=== PATIENT | female | born 1945 | race Caucasian/White ===

== ENCOUNTER → 2019-09-27 | Outpatient (CLI) | payer OTHER ==
[~2019-09-27] MED LIST: ADULT LOW DOSE81 MG PO; ADVAIR 250-501 EACH PO; ADVAIR HFA 230M12 GM INH; ALEVE220 MG PO; ASPIR 8181 MG PO; ASPIRIN325 PO; CITRUCEL CAPLET1 TA1 PO; DOXYCYCLINE 10100 MG PO; FERATE240 M1 PO; FERROUS GLUCON324 M2 PO; FISH OIL 1,001000 M2 PO; FOLIC ACID1 MG PO; HYDROCHLOROTH12.5 M1 PO; IBUPROFEN 200200 M1 PO; IBUPROFEN 600600 M1 PO; LEVOTHYROXIN0.125 M1 PO; LISINOPRIL10 MG PO; MUCINEX TA600 MG/TA2 PO; OMEGA-31000 M1 PO; OMEPRAZOLE20 MG PO; PAROXETINE HCL10 MG PO; PAXIL10 MG PO; PRILOSEC20 MG PO; PRINIVIL10 MG PO; PROAIR HFA8.5 GM INH; ROCEPHIN 1 GM VL1 G1 IV; SINGULAIR 10 MG10 M1 PO; TYLENOL325 MG PO; VITAMIN D1000 UNI1 PO; VITAMIN D31000 UNI2 PO
[2019-09-27 15:35] LABS: HEMATOCRIT 37.7 % (37.0-47.0); HEMOGLOBIN 12.6 gm/dL (12.0-15.0); MCH 32.8 pg (26.0-34.0); MCHC 33.4 g/dL (28.0-37.0); MCV 98.1 fL (80.0-100.0); MPV 9.1 fl. (7.2-11.1); RBC 3.84 mil/uL (4.20-5.00); RDW-CV 12.8 % (10.5-14.5); WBC 5.6 thou/uL (4.0-11.0)
== END ==
LOC: M.LAB 15:19
PROVIDERS: ATTEND Orthopaedic Surgery
DX: M25.561 Pain in right knee (principal)

== ENCOUNTER → 2019-10-20 | Outpatient (CLI) | payer OTHER | LOC: M.NUC 10-11 12:27 | PROVIDERS: ATTEND Orthopaedic Surgery | DX: M25.561 Pain in right knee (principal); Z96.653 Presence of artificial knee joint, bilateral ==

== ENCOUNTER → 2020-06-07 | Outpatient (CLI) | payer OTHER | LOC: M.CT 07:40 | PROVIDERS: ATTEND Internal Medicine Gastroenterology | DX: R68.81 Early satiety (principal); R10.10 Upper abdominal pain, unspecified ==